=== PATIENT | female | born 1955 | race Caucasian/White ===

== ENCOUNTER → 2019-11-07 12:55 | Outpatient (BNVA) | payer MEDICARE, SELFPAY | PROVIDERS: Family Provider Family Medicine; PCP Family Medicine; Visit Provider Nurse Practitioner | DX: M54.9 Dorsalgia, unspecified (principal); M25.9 Joint disorder, unspecified; Z79.891 Long term (current) use of opiate analgesic | CPT/HCPCS: 99214 ==

== ENCOUNTER → 2020-03-22 13:19 | Outpatient (BNVA) | payer MEDICARE, SELFPAY | PROVIDERS: Family Provider Family Medicine; PCP Family Medicine; Visit Provider Anesthesiology | DX: G89.29 Other chronic pain (principal); M54.42 Lumbago with sciatica, left side; M54.41 Lumbago with sciatica, right side; M25.511 Pain in right shoulder; M25.512 Pain in left shoulder; Z79.891 Long term (current) use of opiate analgesic | CPT/HCPCS: 99214 ==

== ENCOUNTER → 2020-05-22 12:55 | Outpatient (BNVA) | payer MEDICARE, SELFPAY | PROVIDERS: Family Provider Family Medicine; PCP Family Medicine; Visit Provider Anesthesiology | DX: G89.29 Other chronic pain (principal); M54.41 Lumbago with sciatica, right side; M54.42 Lumbago with sciatica, left side; M25.511 Pain in right shoulder; M25.512 Pain in left shoulder; Z79.891 Long term (current) use of opiate analgesic | CPT/HCPCS: 99214 ==

== ENCOUNTER → 2020-07-24 12:45 | Outpatient (BNVA) | payer MEDICARE, SELFPAY | PROVIDERS: Family Provider Family Medicine; PCP Family Medicine; Visit Provider Anesthesiology | DX: G89.29 Other chronic pain (principal); M54.41 Lumbago with sciatica, right side; M54.42 Lumbago with sciatica, left side; M25.511 Pain in right shoulder; M25.512 Pain in left shoulder; Z79.891 Long term (current) use of opiate analgesic | CPT/HCPCS: 99214 ==

== ENCOUNTER → 2020-09-19 12:47 | Outpatient (BNVA) | payer MEDICARE, SELFPAY | PROVIDERS: Family Provider Family Medicine; PCP Family Medicine; Visit Provider Nurse Practitioner | DX: G89.29 Other chronic pain (principal); M54.5 Low back pain; M25.511 Pain in right shoulder; M25.512 Pain in left shoulder; Z79.891 Long term (current) use of opiate analgesic | CPT/HCPCS: 99213; 99214 ==

== ENCOUNTER → 2020-11-14 12:21 | Outpatient (BNVA) | payer MEDICARE, SELFPAY | PROVIDERS: Family Provider Family Medicine; PCP Family Medicine; Visit Provider Nurse Practitioner | DX: G89.29 Other chronic pain (principal); M54.5 Low back pain; M25.511 Pain in right shoulder; M25.512 Pain in left shoulder; Z79.891 Long term (current) use of opiate analgesic | CPT/HCPCS: 99214 ==

== ENCOUNTER → 2021-01-16 12:11 | Outpatient (BNVA) | payer MEDICARE, SELFPAY | PROVIDERS: Family Provider Family Medicine; PCP Family Medicine; Visit Provider Anesthesiology | DX: G89.29 Other chronic pain (principal); M54.41 Lumbago with sciatica, right side; M54.42 Lumbago with sciatica, left side; M25.511 Pain in right shoulder; M25.512 Pain in left shoulder; Z79.891 Long term (current) use of opiate analgesic | CPT/HCPCS: 99213 ==

== ENCOUNTER → 2021-03-21 11:51 | Outpatient (BNVA) | payer MEDICARE, SELFPAY | PROVIDERS: Family Provider Family Medicine; PCP Family Medicine; Visit Provider Anesthesiology | DX: G89.29 Other chronic pain (principal); M54.5 Low back pain; M25.511 Pain in right shoulder; M25.512 Pain in left shoulder; Z79.891 Long term (current) use of opiate analgesic | CPT/HCPCS: 99214 ==

== ENCOUNTER 2021-03-26 09:43 | Emergency (ER) | payer MEDICARE, SELFPAY ==
[2021-03-26 10:11] VITALS: BP 123/73; PULSE 78; RESP 15; TEMP 37.1; O2SAT 94; BMI 24.3
[2021-03-26 11:14] VITALS: BP 105/63; PULSE 72; O2SAT 98
--- NOTE | 2021-03-26 11:19 | XR_ITS ---
WS: [id number] Acute abdomen series, 03/26/2021 Clinical Data: Abd Pain Comparison: None. Findings: In the chest there are no nodules, masses or effusions. The heart is slightly enlarged. The pulmonary vascularity is not increased. The aortic arch shows minimal tortuosity. No free air is seen beneath the diaphragms. No abnormal intra-abdominal masses or calcifications are seen. There is fecal material in the colon. The liver may be enlarged. There is a bony fusion of the L3-S1 vertebral bodies with a laminectomy at L4 and L5. XR/XR acute abdomen series [id number] Impression: 1. Cardiomegaly and atherosclerosis. 2. Hepatomegaly.
--- NOTE | 2021-03-26 11:19 | ECG_ITS ---
[facility] Test Date: 2021-03-26 Pat Name: Guillermina Pinon Department: Room: Gender: Female Strategy Consultant: : 1955 Requested By: Tushar Burgess Order Number: [id number] Vamshi MD: Nicole Jane M.D. Measurements Intervals [place] Rate: 67 P: 73 DE: 162 QRS: 24 QRSD: 94 T: 17 QT: 410 QTc: 433 Interpretive Statements SINUS RHYTHM POSSIBLE RIGHT VENTRICULAR CONDUCTION DELAY [RSR (QR) IN V1/V2] NONSPECIFIC T-WAVE ABNORMALITY No previous ECG available for comparison Electronically Signed On 03-26-2021 21:43:14 CDT by Nicole Jane M.D. [id number]
--- NOTE | 2021-03-26 11:21 | ED_ITS ---
HPI - Abdominal Pain General: Chief Complaint: Abdominal Pain Stated Complaint: ABDOMAN PAIN Time Seen by Provider: 03/26/21 11:10 History of Present Illness: HPI narrative: This patient is a 66-year-old female who presents to the emergency department complaint epigastric discomfort. Patient states been going on for the past couple days. Patient denies any nausea vomiting or diarrhea. Patient states her bowel movements are normal for her. Patient has a long history of pain issues and takes fentanyl patch and 10 mg tablets of hydrocodone 3 times a day including Soma as a muscle relaxer. Patient states she has been intermittent epigastric and gastric discomfort for the past couple days. Patient states couple times she did know she did make it to the bathroom. Patient denies fever cough or congestion. Will do medical evaluation treat as needed. MD elicited complaint: abdominal pain Pertinent past history: constipation Pain Consistency: colicky Location: Diffuse and Epigastric Severity: moderate Quality: cramping and aching Radiation: none Migration to: no migration Exacerbating factors: nothing Relieving factors: nothing Associated Symptoms: Denies chills, dysuria, fever(s), nausea and vomiting Review of Systems General: Reports: 10 or more systems reviewed and unremarkable except in HPI and below Const: Denies: fever(s), chills, body aches or fatigue Eyes: Denies: change in vision or blurry vision ENMT: Denies: throat pain, hoarseness or mouth pain Card: Denies: chest pain, palpitations, irregular heart rhythm, edema, swelling of feet/ankles or lightheadedness Resp: Denies: dyspnea, productive cough, non-productive cough, wheezing or pain on inspiration GI: Denies: abdominal pain, nausea or vomiting : Denies: flank pain, difficulty voiding, dysuria, urinary frequency, urinary urgency or urinary hesitancy Musc: Denies: neck pain, back pain, extremity pain, extremity swelling, joint pain, joint swelling, joint redness, joint warmth or limited range of motion Skin/Breast: Denies: rash, pruritus, erythema or skin tenderness Neuro: Denies: headache(s), numbness in extremities or weakness in extremities Psych: Denies: anxiety or depression PFS ED PFSH: Medical History Chronic low back pain Chronic pain of both shoulders Encounter for long-term opiate analgesic use Low back pain of over 3 months duration Opioid contract exists Surgical History History of ankle surgery 1982 ? AND HARDWARE REMOVAL 1993 History of back surgery L3-S1 1994 AND HARDWARE REMOVAL 1996 then tried to go back in to clean up more Hx of appendectomy Family History Unknown Hypertension Social History Smoking and tobacco status: former smoker Second hand smoke exposure: Yes Alcohol intake: never History of recent travel: No Physical Exam Const: COMMON NORMALS: no acute distress, average body habitus, patient oriented x3, no limitations, healthy appearing, alert and well nourished HENMT: COMMON NORMALS: normocephalic, atraumatic, hearing grossly normal bilaterally, external ears normal, EAC's normal, TM's normal bilaterally, Normal external nose present, Normal nasal mucous membranes and turbinates present, moist oral mucous membranes, oropharynx normal, dentition normal and gingiva normal HEAD & SCALP: normocephalic and atraumatic NOSE: Normal external nose present and Normal nasal mucous membranes and turbinates present EXTERNAL EAR: Yes external ears normal EXTERNAL AUDITORY CANAL: EAC's normal TYMPANIC MEMBRANE: TM's normal bilaterally Neck/C-Spine: COMMON NORMALS: full ROM, no lymphadenopathy, supple, no meningeal signs, no JVD, Thyroid normal and No carotid bruits THYROID: Thyroid normal Chest: COMMONS NORMALS: normal inspection of the chest, normal palpation of entire chest wall, normal inspection of the breasts and normal palpation of the breasts Breast/axilla inspection: Yes normal inspection of the breasts BREAST/AXILLA PALPATION: Yes normal palpation of the breasts Resp: COMMON NORMALS: normal respiratory effort, No retractions, No use of accessory muscles, clear to auscultation bilaterally and percussion normal AUSCULTATION: clear to auscultation bilaterally PERCUSSION: percussion normal Cardio: COMMON NORMALS: no JVD, regular rate, regular rhythm, S1 normal heart sound present, S2 normal heart sound present, No gallops present (Cardio), No clicks present (Cardio), No murmurs present (Cardio), No rub (Cardio) and Peripheral pulses 2+ throughout RATE: regular rate RHYTHM: regular rhythm HEART SOUNDS: S1 normal heart sound present and S2 normal heart sound present PERIPHERAL PULSES: Peripheral pulses 2+ throughout GI: COMMON NORMALS: Normal to inspection, nondistended, normoactive bowel sounds present, Soft to palpation, non-tender, No hepatosplenomegaly present, no masses and no bruits PALPATION: Yes Soft to palpation and Yes No hepatosplenomegaly present Back/Pelvis: COMMON NORMALS: thoracic and lumbar spine normal to inspection, no thoracic nor lumbar tenderness, thoraco-lumbar ROM normal and straight leg raise negative bilaterally Extremity: COMMON NORMALS: normal to inspection, full ROM, capillary refill normal, no joint enlargement, no clubbing, cyanosis or edema, no calf tenderness and no pedal edema Neuro: COMMON NORMALS: patient oriented x3 SENSORIUM/ORIENTATION: Yes alert MENINGEAL SIGNS: Yes no meningeal signs Course Consultations: Consultation #1: I did discuss at length with Dr. Navarro general surgery. He recommend that we transfer patient out to a different facility for MRCP/ERCP availability. Unavailable at this facility. He does agree with Zosyn IV for possible cholecystitis. Time: 15:01 Consultation #2: I did discuss at length with Dr Branch GI specialist at [facility]. He is accepted this patient for transfer hospitalist will admit. Patient be transferred to soon as possible Time: 16:40 Vital Signs: Vital signs: Vital Signs Temperature 98.7 F 03/26/21 10:11 Pulse Rate 80 03/26/21 15:33 Respiratory Rate 16 03/26/21 15:33 Blood Pressure 160/48 03/26/21 15:33 Pulse Oximetry 96 03/26/21 15:33 MDM - Abdominal Pain MDM Narrative: Medical decision making narrative: This patient is a 66-year-old female who presents to the emergency department complaint epigastric discomfort. Patient states been going on for the past couple days. Patient denies any nausea vomiting or diarrhea. Patient states her bowel movements are normal for her. Patient has a long history of pain issues and takes fentanyl patch and 10 mg tablets of hydrocodone 3 times a day including Soma as a muscle relaxer. Patient states she has been intermittent epigastric and gastric discomfort for the past couple days. Patient states couple times she did know she did make it to the bathroom. Patient denies fever cough or congestion. I did discuss at length with Dr. Navarro general surgery. He recommend that we transfer patient out to a different facility for MRCP/ERCP availability. Unavailable at this facility. He does agree with Zosyn IV for possible cholec ystitis. I did discuss at length with Dr Branch GI specialist at [facility]. He is accepted this patient for transfer hospitalist will admit. Patient be transferred to soon as possible Differential Diagnosis: Differential diagnosis abdominal pain: Likely abdominal pain, acute appendicitis, calculus of kidney, constipation, diverticulitis, endometriosis, gastroenteritis, pancreatitis and small bowel obstruction Medical Records: Attestation: I reviewed the patient's medical records. Lab Data: Attestation: I reviewed the patient's lab results. Labs: Lab Results 03/26/21 03/26/21 03/26/21 Range/Units 11:29 11:29 11:29 WBC 16.1 H (4.0-10.0) 10^3/ uL RBC 4.32 (4.1-5.3) 10^6/u L Hgb 12.9 (11.5-15.3) g/dL Hct 39.9 (37.0-47.0) % MCV 92.4 (81-99) fL MCH 29.9 (28.0-34.0) pg MCHC 32.3 (30.0-36.0) g/dL RDW 12.7 (12.1-15.1) % Plt Count 327 (130-400) 10^3/c mm MPV 10.4 (7.4-10.4) fL Neut % (Auto) 76.5 % Lymph % (Auto) 15.2 % [place] % (Auto) 6.9 % Eos % (Auto) 0.3 % Baso % (Auto) 0.5 % Neut # (Auto) 12.29 H (1.8-7.7) 10^3/u L Lymph # (Auto) 2.4 (0.8-4.8) 10^3/u L [place] # (Auto) 1.1 H (0.2-0.9) 10^3/u L Eos # (Auto) 0.1 (0.0-0.8) 10^3/u L Baso # (Auto) 0.1 (0.0-0.1) 10^3/u L Nucleated RBC % (a uto) 0 % Nucleated RBCs # 0.0 /100WBC Sodium 132 L (136-145) mmol/L Potassium 3.4 L (3.5-5.1) mmol/L Chloride 92 L (98-107) mmol/L Carbon Dioxide 27 (22-29) mmol/L Anion Gap 16.4 (5-19) BUN 13 (8-23) mg/dL Creatinine 0.6 (0.5-0.9) mg/dL GFR Calculation 99.7 (90-130) mL/min Glucose 102 (65-115) mg/dL Calculated Osmolal ity 274 L (285-295) mOsm/k g Calcium 9.3 (8.5-10.5) mg/dL Total Bilirubin 0.9 (0.15-1.2) mg/dL AST 118 H (0-32) U/L ALT 177 H (0-33) U/L Alkaline Phosphata se 176 H (35-105) IU/L Total Protein 7.8 (6.6-8.7) g/dL Albumin 4.3 (3.5-5.2) g/dL Globulin 3.5 (1.3-4.6) g/dL Lipase 22 (13-60) U/L Urine Color Yellow (Yellow) Urine Appearance Clear (CLEAR) Urine pH 5 (5-7) Ur Specific Gravit y 1.020 (1.005-1.030) Urine Protein Trace (Negative) Urine Glucose (UA) Norm (Normal) Urine Ketones 1+ H (Negative) Urine Blood Neg (Negative) Urine Nitrate Negative (Negative) Urine Bilirubin 1+ H (Negative) Urine Urobilinogen 4 H (Negative) mg/dL Ur Leukocyte Teresita ase Trace H (Negative) Urine RBC None (0-2) /hpf Urine WBC 0-4 H (0-5) /hpf Ur Squamous Epith Cells 0-4 H (0-5) /hpf Amorphous Sediment Not Reportable Urine Bacteria Trace (NONE) /hpf Urine Opiates Scre en (Negative) ng/mL Ur Barbiturates Sc reen (Negative) ng/mL Ur Phencyclidine S crn (Negative) ng/mL Ur Amphetamines Sc reen (Negative) ng/mL U Benzodiazepines Scrn (Negative) ng/mL Urine Cocaine Scre en (Negative) ng/mL U Marijuana (THC) Screen (Negative) ng/mL 03/26/21 Range/Units 11:29 WBC (4.0-10.0) 10^3/ uL RBC (4.1-5.3) 10^6/u L Hgb (11.5-15.3) g/dL Hct (37.0-47.0) % MCV (81-99) fL MCH (28.0-34.0) pg MCHC (30.0-36.0) g/dL RDW (12.1-15.1) % Plt Count (130-400) 10^3/c mm MPV (7.4-10.4) fL Neut % (Auto) % Lymph % (Auto) % [place] % (Auto) % Eos % (Auto) % Baso % (Auto) % Neut # (Auto) (1.8-7.7) 10^3/u L Lymph # (Auto) (0.8-4.8) 10^3/u L [place] # (Auto) (0.2-0.9) 10^3/u L Eos # (Auto) (0.0-0.8) 10^3/u L Baso # (Auto) (0.0-0.1) 10^3/u L Nucleated RBC % (a uto) % Nucleated RBCs # /100WBC Sodium (136-145) mmol/L Potassium (3.5-5.1) mmol/L Chloride (98-107) mmol/L Carbon Dioxide (22-29) mmol/L Anion Gap (5-19) BUN (8-23) mg/dL Creatinine (0.5-0.9) mg/dL GFR Calculation (90-130) mL/min Glucose (65-115) mg/dL Calculated Osmolal ity (285-295) mOsm/k g Calcium (8.5-10.5) mg/dL Total Bilirubin (0.15-1.2) mg/dL AST (0-32) U/L ALT (0-33) U/L Alkaline Phosphata se (35-105) IU/L Total Protein (6.6-8.7) g/dL Albumin (3.5-5.2) g/dL Globulin (1.3-4.6) g/dL Lipase (13-60) U/L Urine Color (Yellow) Urine Appearance (CLEAR) Urine pH (5-7) Ur Specific Gravit y (1.005-1.030) Urine Protein (Negative) Urine Glucose (UA) (Normal) Urine Ketones (Negative) Urine Blood (Negative) Urine Nitrate (Negative) Urine Bilirubin (Negative) Urine Urobilinogen (Negative) mg/dL Ur Leukocyte Teresita ase (Negative) Urine RBC (0-2) /hpf Urine WBC (0-5) /hpf Ur Squamous Epith Cells (0-5) /hpf Amorphous Sediment Urine Bacteria (NONE) /hpf Urine Opiates Scre en Positive H (Negative) ng/mL Ur Barbiturates Sc reen Negative (Negative) ng/mL Ur Phencyclidine S crn Negative (Negative) ng/mL Ur Amphetamines Sc reen Negative (Negative) ng/mL U Benzodiazepines Scrn Negative (Negative) ng/mL Urine Cocaine Scre en Negative (Negative) ng/mL U Marijuana (THC) Screen Negative (Negative) ng/mL Imaging Data ^: KUB: Attestation: I personally reviewed and interpreted this imaging study as follows: Radiologist's impression: Findings: In the chest there are no nodules, masses or effusions. The heart is slightly enlarged. The pulmonary vascularity is not increased. The aortic arch shows minimal tortuosity. No free air is seen beneath the diaphragms. No abnormal intra-abdominal masses or calcifications are seen. There is fecal material in the colon. The liver may be enlarged. There is a bony fusion of the L3-S1 vertebral bodies with a laminectomy at L4 and L5. XR/XR acute abdomen series [id number] Impression: 1. Cardiomegaly and atherosclerosis. 2. Hepatomegaly. US: Attestation: I personally reviewed and interpreted this imaging study as follows: Radiologist's impression: IMPRESSION: Technically difficult examination. 1. Distended fluid-filled gallbladder with mild gallbladder wall thickening. No pericholecystic fluid. No cholelithiasis. 2. Markedly dilated common bile measuring 2.8 cm. This can be further evaluated with MRCP to assess for choledocholithiasis. 3. No hydronephrosis in right kidney. 4. Hepatomegaly with diffuse fatty infiltration EKG Data ^: EKG 1: Attestation: I personally reviewed and interpreted this EKG as follows: EKG interpretation date: 03/26/21 EKG interpretation time: 12:00 Prior EKG tracings: not available for review Ischemic changes: non-specific ST-T wave changes Interpretation: Sinus rhythm nonspecific T changes. Borderline EKG heart rate 67 Discharge Plan Discharge Patient Disposition: Xfer Short-Term Hosp Clinical Impression: Abnormal gallbladder ultrasound, Chronic low back pain, Abdominal pain, acute, right upper quadrant Condition: Stable Prescriptions: No Action acetaminophen 500 mg capsule 500 mg PO PRN RF: 0 diphenhydramine HCl 25 mg capsule 25 mg PO PRN RF: 0 carisoprodol [Soma] 350 mg tablet 350 mg PO QID 30 Days Qty: 120 RF: 1 fentanyl 25 mcg/hr patch 72 hour 1 patch TRANSDERMA Q72H 30 Days Qty: 10 RF: 0 fentanyl 25 mcg/hr patch 72 hour 1 patch TRANSDERMA Q72H 30 Days Qty: 10 RF: 0 fentanyl 100 mcg/hr patch 72 hour 1 patch TRANSDERMA Q72H 30 Days Qty: 10 RF: 0 fentanyl 100 mcg/hr patch 72 hour 1 patch TRANSDERMA Q72H 30 Days Qty: 10 RF: 0 hydrocodone-acetaminophen 10-325 mg tablet 1 tab PO Q8H PRN (Reason: pain) 30 Days Qty: 90 RF: 0 hydrocodone-acetaminophen 10-325 mg tablet 1 tab PO TID PRN (Reason: pain) 30 Days Qty: 90 RF: 0 multivitamin Tablet 1 tab PO DAILY RF: 0 Pepcid AC 20 mg Tablet 20 mg PO BID RF: 0 ibuprofen 200 mg Tablet 200 mg PO PRN RF: 0 Referrals: Mumtaz Landeros MD [Primary Care Provider] - Patient Instructions: Abdominal Pain (ED) Coding Level of Care Code ED [place] for Chg Fwd Exam Comprehensive
[2021-03-26] MEDS: sodium chloride 0.9% 500 ML IV (11:42)
[2021-03-26] MEDS: ondansetron 2 mg/ML SDV 2 mL 4 MG IVP (11:42)
[2021-03-26 11:51] LABS: Basophils # 0.1 10^3/uL (0.0-0.1); Basophils % 0.5 %; Eosinophils # 0.1 10^3/uL (0.0-0.8); Eosinophils % 0.3 %; Hematocrit 39.9 % (37.0-47.0); Hemoglobin 12.9 g/dL (11.5-15.3); Lymphocytes # 2.4 10^3/uL (0.8-4.8); Lymphocytes % 15.2 %; Mean Corpuscular HGB Conc 32.3 g/dL (30.0-36.0); Mean Corpuscular Hemoglobin 29.9 pg (28.0-34.0); Mean Corpuscular Volume 92.4 fL (81-99); Mean Platelet Volume 10.4 fL (7.4-10.4); Monocytes # 1.1 10^3/uL (0.2-0.9); Monocytes % 6.9 %; Neutrophils # 12.29 10^3/uL (1.8-7.7); Neutrophils % 76.5 %; Nucleated Red Blood Cells % 0 %; Platelet Count 327 10^3/cmm (130-400); Red Blood Count 4.32 10^6/uL (4.1-5.3); Red Cell Distribution Width 12.7 % (12.1-15.1); White Blood Count 16.1 10^3/uL (4.0-10.0)
[2021-03-26 12:10] LABS: Alanine Aminotransferase 177 U/L (0-33); Albumin Level 4.3 g/dL (3.5-5.2); Alkaline Phosphatase 176 IU/L (35-105); Anion Gap 16.4 (5-19); Aspartate Amino Transferase 118 U/L (0-32); Blood Urea Nitrogen 13 mg/dL (8-23); Calcium 9.3 mg/dL (8.5-10.5); Carbon Dioxide 27 mmol/L (22-29); Chloride 92 mmol/L (98-107); Globulin 3.5 g/dL (1.3-4.6); Glomerular Filtration Rate 99.7 mL/min (90-130); Glucose 102 mg/dL (65-115); Lipase 22 U/L (13-60); Osmolality Calculated 274 mOsm/kg (285-295); Potassium 3.4 mmol/L (3.5-5.1); Sodium 132 mmol/L (136-145); Total Bilirubin 0.9 mg/dL (0.15-1.2); Total Protein 7.8 g/dL (6.6-8.7)
[2021-03-26 12:18] LABS: Amphetamines Screen Urine Negative (Negative); Barbiturates Screen Urine Negative (Negative); Benzodiazepines Screen Urine Negative (Negative); Cocaine Screen Urine Negative (Negative); Opiate Screen Urine Positive (Negative); PCP Screen Urine Negative (Negative); THC Screen Urine Negative (Negative)
[2021-03-26 12:41] LABS: Add Urine Microscopic? YES; Bilirubin Urine 1+ (Negative); Blood Urine Neg (Negative); Glucose Urine UA Norm (Normal); Ketones Urine 1+ (Negative); Leukocyte Esterase Urine Trace (Negative); Nitrate Urine Negative (Negative); Protein Urine Trace (Negative); Urine Appearance Clear (CLEAR); Urine Color Yellow (Yellow); Urobilinogen Urine 4 mg/dL (Negative); pH Urine 5 (5-7)
[2021-03-26 12:42] LABS: Bacteria Urine TRACE /hpf; Squamous Epithelial Cell Urine 0-4 /hpf (0-5); WBC Urine 0-4 /hpf (0-5)
--- NOTE | 2021-03-26 13:27 | US_ITS ---
WS: [id number] ULTRASOUND ABDOMEN LIMITED CLINICAL INFORMATION: ABDOMEN PAIN COMPARISON: None. FINDINGS: Technically difficult examination. Patient unable to roll LPO. Liver Size: Enlarged Craniocaudal length: 17.9 cm. Echogenicity: Coarse Surface nodularity: None. Mass (size and location): None. Bile ducts Intrahepatic ducts: Normal. Common bile duct diameter: 2.8 cm. Gallbladder Dilated Gallstones: None. Gallbladder sludge: None. Gallbladder wall thickening: Mild gallbladder wall thickening measuring 4.8 mm. Pericholecystic fluid: None. Sonographic Lopez sign: Absent. Pancreas Normal as visualized. Right kidney: Normal. Hydronephrosis: None. Size: 10.3 cm x 4.3 cm x 4.1 cm. Abdominal aorta and IVC Visualized portions are normal. Ascites: None. US/US gall bladder [id number] IMPRESSION: Technically difficult examination. 1. Distended fluid-filled gallbladder with mild gallbladder wall thickening. N o pericholecystic fluid. No cholelithiasis. 2. Markedly dilated common bile measuring 2.8 cm. This can be further evaluate d with MRCP to assess for choledocholithiasis. 3. No hydronephrosis in right kidney. 4. Hepatomegaly with diffuse fatty infiltration
[2021-03-26 15:33] VITALS: BP 160/48; PULSE 80; RESP 16; O2SAT 96
[2021-03-26] MEDS: piperacillin-tazobactam 3.375 GM in sodium chloride 0.9% (plus) 100 ML IV (16:06)
[2021-03-26 19:12] VITALS: BP 171/76; PULSE 77; RESP 22; O2SAT 95
[2021-03-26 19:27] VITALS: RESP 18; O2SAT 94
[2021-03-26] MEDS: morphine 4 mg/mL SDV 1 mL 2 MG IVP (19:27)
[2021-03-26 20:15] VITALS: BP 170/71; PULSE 77; PULSE 81; RESP 18; O2SAT 94; O2SAT 95
== END 2021-03-26 20:23 | disposition short-term general hospital (02) ==
PROVIDERS: Physician Assistant; Emergency Provider Emergency Medicine; PCP Anesthesiology
DX: R10.11 Right upper quadrant pain (principal); G89.29 Other chronic pain; M54.5 Low back pain; R93.5 Abnormal findings on diagnostic imaging of other abdominal regions, including retroperitoneum; Z77.22 Contact with and (suspected) exposure to environmental tobacco smoke (acute) (chronic); Z79.891 Long term (current) use of opiate analgesic; Z79.899 Other long term (current) drug therapy
CPT/HCPCS: 74022; 76705; 80053; 80306; 81001; 83690; 85025; 93005; 96365; 96375; 99285; J2270; J2405; J2543; J7040

== ENCOUNTER → 2021-05-20 12:16 | Outpatient (BNVA) | payer MEDICARE, SELFPAY | PROVIDERS: PCP Family Medicine; Visit Provider Anesthesiology | DX: G89.29 Other chronic pain (principal); M54.5 Low back pain; M25.511 Pain in right shoulder; M25.512 Pain in left shoulder; Z79.891 Long term (current) use of opiate analgesic | CPT/HCPCS: 99214 ==

== ENCOUNTER → 2021-07-15 12:42 | Outpatient (BNVA) | payer MEDICARE, SELFPAY | PROVIDERS: PCP Family Medicine; Visit Provider Anesthesiology | DX: G89.29 Other chronic pain (principal); M54.50 Low back pain, unspecified; M25.511 Pain in right shoulder; M25.512 Pain in left shoulder; Z79.891 Long term (current) use of opiate analgesic | CPT/HCPCS: 99214 ==

== ENCOUNTER → 2021-09-16 12:50 | Outpatient (BNVA) | payer MEDICARE, SELFPAY | PROVIDERS: PCP Family Medicine; Visit Provider Anesthesiology | DX: G89.29 Other chronic pain (principal); M54.50 Low back pain, unspecified; M25.511 Pain in right shoulder; M25.512 Pain in left shoulder; Z79.891 Long term (current) use of opiate analgesic | CPT/HCPCS: 99214 ==

== ENCOUNTER 2023-01-26 12:20 | Outpatient (CLI) | payer MEDICARE, SELFPAY ==
--- NOTE | 2023-01-26 12:27 | CT_ITS ---
WS: [id number] CT ABDOMEN WITH CONTRAST HISTORY: RIGHT UPPER QUADRANT PAIN Contiguous single phase 5 mm axial imaging performed to the abdomen. Oral contrast has not been provi ded. Coronal and sagittal reformats are submitted. All CT scans at [facility] use at least on e of these dose optimization techniques: automated exposure control; mA and/or kV adjustment per kathia ent size (includes targeted exams where dose is matched to clinical indication); or iterative reconst ruction. IV CONTRAST: None Oral contrast: No DLP: 177.68 mGy.cm COMPARISON: Gallbladder ultrasound 03/26/2021 Lower thorax: Mild hyperinflation. Heart is normal size. Small hiatal hernia. Liver/biliary system: Normal size liver. There is marked dilatation of the central common bile duct a nd central hepatic ducts. The common bile duct measures 2.7 cm. There is similar configuration and si ze as compared to the ultrasound of 03/26/2021. Common bile tapers towards the ampulla of Vater. Gallbladder: Prior cholecystectomy. Pancreas: Very limited without IV and oral contrast. The head is poorly defined. Spleen: Normal size spleen. No mass or infarct. Adrenal glands: Normal. Right kidney: Normal. Left kidney: Normal. Aorta: Heavily calcified aorta. No aneurysm. Lymphadenopathy: None. Free fluid: None. GI tract: As visualized within the abdomen fecal retention and constipation. No obstruction. Abdominal wall: Unremarkable abdominal wall. No hernia. Visualized osseous structures: 50% anterior compression fracture L4. CT/CT abdomen wo con [id number] IMPRESSION: 1. Status post cholecystectomy. 2. Marked but stable dilatation of the common bile duct measuring 2.7 cm. Mayra lar configuration and size as compared to the prior ultrasound of 03/26/2021. If this has not been previously evaluated MRCP would provide additional informati on concerning possible distal stricture. 3. Pancreatic head mass cannot be excluded on noncontrast CT examination. 4. Moderate atherosclerosis aorta and common iliac arteries. 5. Constipation. 6. 50% compression fracture L4.
== END 2023-01-26 12:21 | disposition home or self-care (01) ==
LOC: RAD 12:22
PROVIDERS: PCP Family Medicine; Visit Provider Nurse Practitioner Family
DX: R10.11 Right upper quadrant pain (principal); K86.9 Disease of pancreas, unspecified; I70.0 Atherosclerosis of aorta; I70.8 Atherosclerosis of other arteries; K59.00 Constipation, unspecified
CPT/HCPCS: 74150

== ENCOUNTER 2023-11-23 09:02 | Outpatient (CLI) | payer MEDICARE, SELFPAY ==
--- NOTE | 2023-11-23 09:08 | MM_ITS ---
WS: [id number] SCREENING DIGITAL TOMOSYNTHESIS MAMMOGRAM WITH CAD HISTORY: SCREENING COMPARISON: None available. Bilateral CC and MLO with tomosynthesis views submitted. Synthetic mammography reviewed. Computer aid ed detection analyzed. Breast composition: There are scattered areas of fibroglandular density. No suspicious masses, microc alcifications or architectural distortion. IMPRESSION: MM/[place] [id number] BI-RADS: 1-Negative FOLLOW UP: 1 Year Follow-up
== END 2023-11-23 09:03 | disposition home or self-care (01) ==
LOC: RAD 09:02
PROVIDERS: PCP Family Medicine; Visit Provider Nurse Practitioner Family
DX: Z12.31 Encounter for screening mammogram for malignant neoplasm of breast (principal)
CPT/HCPCS: 77063; 77067

== ENCOUNTER → 2024-11-07 09:51 | Outpatient (BNVA) | payer MEDICARE, SELFPAY | PROVIDERS: PCP Family Medicine; Visit Provider Internal Medicine | DX: R55 Syncope and collapse (principal); R42 Dizziness and giddiness | CPT/HCPCS: 93229 ==

== ENCOUNTER 2025-01-02 10:12 | Outpatient (CLI) | payer MEDICARE, SELFPAY ==
--- NOTE | 2025-01-02 10:22 | XR_ITS ---
WS: [id number] Exam: XR shoulder LT min 2V* [id number] Date/Time of Exam: 01/02/2025 10:26 AM Reason For Exam: LEFT SHOULDER PAIN No acute fracture. Moderately advanced DJD of the glenohumeral joint with near [id number]. Mild arthrosis at the AC joint. Normal soft tissues. XR/XR shoulder LT min 2V* [id number] IMPRESSION: 1. Moderately advanced DJD of the glenohumeral joint.
--- NOTE | 2025-01-02 10:22 | XR_ITS ---
WS: [id number] Exam: XR knee LT 1-2V [id number] Date/Time of Exam: 01/02/2025 10:26 AM Reason For Exam: LEFT KNEE PAIN No fracture. There is advanced tricompartmental degenerative change most severe involving the lateral compartment. Large posterior inferior patella spur. Varus deformity of the knee. Joint effusion in the suprapatellar bursa. IMPRESSION1. Advanced tricompartmental DJD most severe involving the lateral compartment. Chondrocalcinosis and joint effusion.
== END 2025-01-02 10:13 | disposition home or self-care (01) ==
PROVIDERS: PCP Family Medicine; Visit Provider Nurse Practitioner Family
DX: M19.012 Primary osteoarthritis, left shoulder (principal); M17.12 Unilateral primary osteoarthritis, left knee; M11.262 Other chondrocalcinosis, left knee; M25.462 Effusion, left knee; M76.892 Other specified enthesopathies of left lower limb, excluding foot; R93.6 Abnormal findings on diagnostic imaging of limbs
CPT/HCPCS: 73030; 73560

== ENCOUNTER → 2025-03-06 10:06 | Outpatient (BNVA) | payer MEDICARE, SELFPAY | PROVIDERS: PCP Family Medicine; Visit Provider Physician Assistant | DX: M25.562 Pain in left knee (principal); M25.569 Pain in unspecified knee; M17.12 Unilateral primary osteoarthritis, left knee | CPT/HCPCS: 73560; 73565; 99203 ==

== ENCOUNTER → 2025-03-13 09:55 | Outpatient (BNVA) | payer MEDICARE, SELFPAY | PROVIDERS: PCP Nurse Practitioner Family; Visit Provider Physician Assistant | DX: M75.42 Impingement syndrome of left shoulder (principal); M19.012 Primary osteoarthritis, left shoulder | CPT/HCPCS: 20610; 99213; J3301; J9999 ==

== ENCOUNTER 2025-04-03 10:14 | Outpatient (CLI) | payer MEDICARE, SELFPAY ==
--- NOTE | 2025-04-03 10:22 | XR_ITS ---
WS: [id number] Lumbar spine, 6 views including both obliques in lateral views in flexion, extension and neutral position, 04/03/2025. Clinical Data: LUMBOSACRAL SPONDYLOSIS Comparison: Lumbar spine, 02/25/2017 Findings: No subluxation is seen. There is an L4 compression fracture with loss of greater than 50% of the anterior and central vertebral body height. There is diffuse osteoporosis. There is bony fusion L4-S1 bilaterally with an L4 and L5 laminectomy. There is degenerative disc narrowing at L5-S1. The oblique images show no spondylolysis. The transverse processes and SI joints are normal. No instability occurs on flexion or extension. There are right upper quadrant cholecystectomy clips. XR/XR lumbar spine 6V w f/e [id number] Impression: 1. Old L4 compression fracture. 2. L4 and L5 laminectomies with bilateral L4-S1 bony fusion. 3. No spondylolysis on oblique images. 4. No instability on flexion or extension. 5. Osteoporosis.
== END 2025-04-03 10:15 | disposition home or self-care (01) ==
PROVIDERS: PCP Nurse Practitioner Family; Visit Provider Student in an Organized Health Care Education/Training Program
DX: M47.817 Spondylosis without myelopathy or radiculopathy, lumbosacral region (principal); S32.048A Other fracture of fourth lumbar vertebra, initial encounter for closed fracture; X58.XXXA Exposure to other specified factors, initial encounter; M81.0 Age-related osteoporosis without current pathological fracture; Z98.1 Arthrodesis status; Z98.890 Other specified postprocedural states
CPT/HCPCS: 72114

== ENCOUNTER → 2025-05-08 09:49 | Outpatient (BNVA) | payer MEDICARE, SELFPAY | PROVIDERS: PCP Nurse Practitioner Family; Visit Provider Student in an Organized Health Care Education/Training Program | DX: M75.42 Impingement syndrome of left shoulder (principal); M19.012 Primary osteoarthritis, left shoulder | CPT/HCPCS: 99213 ==

== ENCOUNTER → 2025-06-05 10:01 | Outpatient (BNVA) | payer MEDICARE, SELFPAY | PROVIDERS: PCP Nurse Practitioner Family; Visit Provider Student in an Organized Health Care Education/Training Program | DX: M19.012 Primary osteoarthritis, left shoulder (principal); M75.42 Impingement syndrome of left shoulder | CPT/HCPCS: 99213 ==